=== PATIENT | male | born 2000 | race Caucasian/White ===

== ENCOUNTER 2018-02-12 21:21 | Emergency (ER) | payer OTHER ==
--- NOTE | 2018-02-12 22:11 | RAD ---
EXAM DESCRIPTION: 1. Right forearm, 2 views 2. Right hand, 3 views. CLINICAL HISTORY: pain after bucked from horse COMPARISON: None. FINDINGS: Right forearm: 2 views of the right forearm. Impacted mildly displaced fracture of the distal right radius with dorsal angulation. Normal osseous mineralization. Soft tissue swelling. No other fractures identified. Right hand: Impacted comminuted mildly displaced and dorsally angulated fracture of the distal right radius. Approximately 35 degrees of dorsal angulation. Minimally displaced ulnar styloid fracture. Normal osseous mineralization. Scattered radiopaque foreign bodies likely are on the skin. No other fractures identified. IMPRESSION: 1. Impacted comminuted mildly displaced and dorsally angulated fracture of the distal right radius. 2. Minimally displaced ulnar styloid fracture. Electronically signed by: Remigio Grey 02/12/2018 10:09 PM CDT
[2018-02-12] MEDS ORDERED: HYDROcodone 10MG/APAP 325MG 1 EA TAB PO ONE (22:20)
--- NOTE | 2018-02-12 22:23 | ED.PDOC ---
History of Present Illness - General Chief Complaint: Upper Extremity Injury Stated Complaint: Rt arm injury Time Seen by Provider: 02/12/18 22:19 Source: patient Exam Limitations: no limitations - History of Present Illness Occurred: just prior to arrival Pain - Upper Extremity: moderate: Forearm, right Method of Injury: fell Improving Factors: nothing Worsening Factors: movement Allergies/Adverse Reactions: Allergies NO KNOWN ALLERGY Allergy (Verified 02/12/18 21:35) Home Medications: Ambulatory Orders Tramadol HCl [Ultram] 50 mg PO Q6HR PRN #15 tab 02/12/18 Review of Systems - Review of Systems Constitutional: States: no symptoms reported EENTM: States: no symptoms reported Respiratory: Denies: cough, short of breath, wheezing Cardiology: Denies: chest pain, palpitations Gastrointestinal/Abdominal: Denies: abdominal pain, diarrhea, nausea, vomiting Genitourinary: States: no symptoms reported Musculoskeletal: States: other - PAIN FOREARM. Denies: back pain, neck pain Skin: States: no symptoms reported Neurological: States: no symptoms reported Endocrine: States: no symptoms reported Past Medical History (General) - Patient Medical History Hx Seizures: No Hx Stroke: No Hx Dementia: No Hx Asthma: No Hx of COPD: No Hx Cardiac Disorders: No Hx Congestive Heart Failure: No Hx Pacemaker: No Hx Hypertension: No Hx Thyroid Disease: No Hx Diabetes: No Hx Gastroesophageal Reflux: No Hx Renal Disease: No Hx Cancer: No Hx of HIV: No Hx Hepatitis C: No Hx MRSA: No Surgical History: no surgical history - Vaccination History Hx Tetanus, Diphtheria Vaccination: No Hx Influenza Vaccination: No Hx Pneumococcal Vaccination: No - Social History Hx Tobacco Use: Yes Hx Alcohol Use: Yes Hx Substance Use: No Hx Substance Use Treatment: No Hx Depression: No - Triage Comment ED Triage Comment: Presents to ED--POV--amb---bucked off of horse. c/o Rt hand, wrist and FA painful. Rt radial pulses + strong and regular and cap refill < 3 sec. Family Medical History - Family History Mother Family History: Unknown Physical Exam - Physical Exam General Appearance: Alert, No apparent distress Eyes, Ears, Nose, Throat Exam: PERRL/EOMI, normal ENT inspection, other - HEAD SHOWS NO EVIDENCE OF TRAUMA Neck: non-tender, full range of motion, supple, normal inspection Cardiovascular/Respiratory: regular rate, rhythm, no M/R/G Abdominal Exam: non-tender, no organomegaly Back Exam: normal inspection, no CVA tenderness, no vertebral tenderness Shoulder Exam: normal inspection, non-tender, no evidence of injury Elbow/Forearm Exam: normal inspection, no evidence of injury Wrist Exam: deformity, limited ROM, swelling - DISTAL RADIUS WITH TTP, MILD DEFORMITY, SWELLING MINIMAL ECCHYMOSIS, NVI, GOOD DISTAL PULSES NO LACERATION NOTED. Hand Exam: normal inspection, non-tender, no evidence of injury Neuro/Tendon: normal sensation, normal motor functions, normal tendon functions Mental Status: alert, oriented x 3 Skin Exam: warm/dry, other - MILD ECCHYMOSIS PREVIOUSLY NOTED. Progress - Progress Progress: 02/12/18 23:22 SPLINT CHECKED POST APPLICATION, NVI - EKG/XRAY/CT XRAY: forearm - DISTAL RADIUS FX SL ANGULATED, NON DISPLACED, ULNAR STYLOID FX. Departure - Departure Clinical Impression: Radius and ulna distal fracture Qualifiers: Encounter type: initial encounter Fracture type: closed Laterality: right Qualified Code(s): S52.501A - Unspecified fracture of the lower end of right radius, initial encounter for closed fracture Time of Disposition: 23:23 Disposition: Discharge to Home or Self Care Condition: Good Departure Forms: ED Discharge - Pt. Copy, Patient Portal Self Enrollment Instructions: DI for Fracture Prescriptions: Tramadol HCl [Ultram] 50 mg PO Q6HR PRN #15 tab PRN Reason: Pain Home Medications: Ambulatory Orders Tramadol HCl [Ultram] 50 mg PO Q6HR PRN #15 tab 02/12/18
[2018-02-12] MEDS ORDERED: HYDROCOD/APAP 7.5/325 (ER DISP) #3 TAB PO ONE ×2 (23:02→23:03)
[2018-02-13] VITALS: BP 143/83; TEMP 98; O2SAT 96
== END 2018-02-12 23:59 | disposition home or self-care (01) ==
LOC: ER 21:21
DX: S52.501A Unspecified fracture of the lower end of right radius, initial encounter for closed fracture (principal); S52.611A Displaced fracture of right ulna styloid process, initial encounter for closed fracture; Z87.891 Personal history of nicotine dependence; V80.010A Animal-rider injured by fall from or being thrown from horse in noncollision accident, initial encounter